=== PATIENT | female | born 1950 | race Caucasian/White ===

== ENCOUNTER → 2019-02-17 | Outpatient (CLI) | payer OTHER ==
[~2019-02-17] MED LIST: ASPI81EC PO; CALCIT950 PO; CHOL10002 PO; ESTRTP PV; Hair, Skin & N1 EACH; MELA3 PO; PROBIOTIC PEAR1 EACH; TURMERIC500 MG; UBID100 PO; VIT1CAPS12 PO
[2019-02-17 14:22] LABS: Stool Occult Bld Immuno 1 Negative (NEGATIVE)
== END ==
LOC: LAB 08:00 → LAB SHORT 08:00 → LAB FUT 02-16 14:45
PROVIDERS: Nurse Practitioner Family
DX: R19.7 Diarrhea, unspecified (principal); R10.9 Unspecified abdominal pain; K92.1 Melena
CPT/HCPCS: 82274

== ENCOUNTER 2020-02-14 06:02 | Day surgery (SDC) | payer OTHER ==
[~2020-02-14] VITALS: Ht 165.1 cm; Wt 51.0 kg
== END 2020-02-14 09:40 | disposition home or self-care (01) ==
LOC: ORSCMMR 06:02 → ORD 07:30 → ORSCMMR 09:40
PROVIDERS: Surgery
PROC: B5131ZA Fluoroscopy of Right Jugular Veins using Low Osmolar Contrast, Guidance (ICD-10-PCS; principal; 2020-02-14 07:30)
PROC: 05HM33Z Insertion of Infusion Device into Right Internal Jugular Vein, Percutaneous Approach (ICD-10-PCS; principal; 2020-02-14 07:30)
DX: C25.4 Malignant neoplasm of endocrine pancreas (principal); K21.9 Gastro-esophageal reflux disease without esophagitis; Z79.899 Other long term (current) drug therapy; Z85.3 Personal history of malignant neoplasm of breast; J47.9 Bronchiectasis, uncomplicated
CPT/HCPCS: 77001; C1788; J0690; J1100; J1642; J2250; J2370; J2405; J2704; J3010; J7120

== ENCOUNTER → 2020-02-28 | Outpatient (CLI) | payer OTHER ==
[2020-02-28 13:05] LABS: Hematocrit 24.8 % (33.0-51.0); Hemoglobin 8.1 g/dL (11.5-16.0); Mean Corpuscular HGB 21.4 pg (26.0-34.0); Mean Corpuscular HGB Conc 32.7 g/dL (31.5-36.5); Mean Corpuscular Volume 65 fL (80-100); Platelet Count 111 K/mm3 (150-400); RDW Standard Deviation 34.8 fL (35.1-46.3); Red Blood Cell Count 3.79 M/mm3 (3.80-5.20); White Blood Cell Count 3.87 K/mm3 (4.00-11.30)
[2020-02-28 13:14] LABS: Alanine Aminotransfer (ALT/SGP 136 U/L (12-78); Albumin, Blood 2.9 g/dL (3.4-5.0); Albumin/Globulin Ratio 1.4 (0.8-1.8); Alk Phos 132 U/L (50-136); Anion Gap 6 mmol/L (6-16); Aspartate Aminotrans (AST/SGOT 78 U/L (12-37); Bilirubin, Total 0.7 mg/dL (0.1-1.0); Blood Urea Nitrogen 10 mg/dL (8-24); Bun/Creatinine Ratio 20.5 (12.0-20.0); CO2, Blood 27 mmol/L (21-32); Calcium, Blood 8.1 mg/dL (8.5-10.1); Chloride, Blood 99 mmol/L (98-108); Creatinine, Blood 0.49 mg/dL (0.40-1.00); Globulin, Blood 2.1 g/dL (2.2-4.0); Glomerular Filtration Rate >60 (60-); Glucose, Blood 101 mg/dL (70-99); Sodium, Blood 132 mmol/L (136-145)
[2020-02-28 13:28] LABS: Mean Platelet Volume 9.6 fL (9.1-12.4)
[2020-02-28 14:14] LABS: BASOPHILS PERCENT MAN 0 % (0-2); EOSINOPHILS ABSOLUTE MAN 0.23 K/mm3 (0.00-0.68); EOSINOPHILS PERCENT MAN 6 % (0-6); LYMPHOCYTES % ATYPICAL MANUAL 1 % (0-0); LYMPHOCYTES ABSOLUTE MAN 2.05 K/mm3 (0.84-5.20); LYMPHOCYTES PERCENT MAN 52 % (21-46); MONOCYTES PERCENT MAN 0 % (4-13); NEUTROPHILS ABSOLUTE MAN 1.58 K/mm3 (1.96-9.15); SEG NEUTROPHILS PERCENT MAN 41 % (41-73); TOTAL CELLS COUNTED 100
[2020-02-28 14:46] LABS: Performing Lab SYMBIODYX; Test Name FLOW
[2020-02-28 15:54] LABS: Percent Saturation 99.3 % (15.0-50.0)
== END | disposition home or self-care (01) ==
LOC: LAB SHORT 12:47 → LAB 12:47
PROVIDERS: Internal Medicine Hematology & Oncology
DX: C25.9 Malignant neoplasm of pancreas, unspecified (principal)
CPT/HCPCS: 80053; 82728; 83540; 83550; 85025

== ENCOUNTER 2020-03-09 00:07 | Day surgery (SDC) | payer OTHER ==
[2020-03-07 12:28] LABS: BASOPHILS PERCENT AUTO 0 % (0-2); EOSINOPHILS ABSOLUTE AUTO 0.12 K/mm3 (0.00-0.68); EOSINOPHILS PERCENT AUTO 5 % (0-6); Hematocrit 23.9 % (33.0-51.0); Hemoglobin 7.8 g/dL (11.5-16.0); IMMATURE GRAN PERCENT AUTO 0 % (0-1); LYMPHOCYTES ABSOLUTE AUTO 1.66 K/mm3 (0.84-5.20); LYMPHOCYTES PERCENT AUTO 74 % (21-46); MONOCYTES ABSOLUTE AUTO 0.27 K/mm3 (0.16-1.47); MONOCYTES PERCENT AUTO 12 % (4-13); Mean Corpuscular HGB 21.8 pg (26.0-34.0); Mean Corpuscular HGB Conc 32.6 g/dL (31.5-36.5); Mean Corpuscular Volume 67 fL (80-100); Mean Platelet Volume 9.3 fL (9.1-12.4); NEUTROPHILS ABSOLUTE AUTO 0.18 K/mm3 (1.96-9.15); NEUTROPHILS PERCENT AUTO 8 % (41-73); Platelet Count 236 K/mm3 (150-400); RDW Coefficient Variation 17.6 % (11.7-14.2); RDW Standard Deviation 35.8 fL (35.1-46.3); Red Blood Cell Count 3.58 M/mm3 (3.80-5.20); White Blood Cell Count 2.23 K/mm3 (4.00-11.30)
[2020-03-07 12:37] LABS: Alanine Aminotransfer (ALT/SGP 101 U/L (12-78); Albumin, Blood 2.9 g/dL (3.4-5.0); Albumin/Globulin Ratio 1.3 (0.8-1.8); Alk Phos 126 U/L (50-136); Anion Gap 9 mmol/L (6-16); Aspartate Aminotrans (AST/SGOT 33 U/L (12-37); Bilirubin, Total 0.9 mg/dL (0.1-1.0); Blood Urea Nitrogen 4 mg/dL (8-24); Bun/Creatinine Ratio 7.2 (12.0-20.0); CO2, Blood 26 mmol/L (21-32); Calcium, Blood 8.1 mg/dL (8.5-10.1); Chloride, Blood 103 mmol/L (98-108); Creatinine, Blood 0.56 mg/dL (0.40-1.00); Globulin, Blood 2.3 g/dL (2.2-4.0); Glomerular Filtration Rate >60 (60-); Glucose, Blood 93 mg/dL (70-99); Potassium, Blood 3.1 mmol/L (3.5-5.5); Sodium, Blood 138 mmol/L (136-145); Total Protein, Blood 5.2 g/dL (6.4-8.2)
== END 2020-03-09 16:25 | disposition home or self-care (01) ==
LOC: LAB 00:07 → ATC 00:07 → LAB FUT 02-28 11:30 → EDSTATUS 02-28 11:30
PROVIDERS: Internal Medicine Hematology & Oncology
DX: D64.81 Anemia due to antineoplastic chemotherapy (principal); C25.4 Malignant neoplasm of endocrine pancreas; Z79.899 Other long term (current) drug therapy; Z88.0 Allergy status to penicillin
CPT/HCPCS: 36415; 36430; 80053; 85025; 86850; 86900; 86901; 86923; J1642; J7050; P9016

== ENCOUNTER → 2020-11-24 | Outpatient (CLI) | payer OTHER ==
[~2020-11-24] MED LIST changes: +CREON DR 24,001 EACH PO; +LOMOTIL 2.5-0.1 EACH PO; +Roxicodone5 MG PO; +ZINC15 PO
== END | disposition home or self-care (01) ==
LOC: LAB SHORT 08:05 → LAB 08:05
DX: N39.0 Urinary tract infection, site not specified (principal)
CPT/HCPCS: 87086

== ENCOUNTER → 2020-12-11 | Outpatient (CLI) | payer OTHER | END | disposition home or self-care (01) | LOC: LAB 09:30 → LAB SHORT 09:30 | DX: R31.9 Hematuria, unspecified (principal) | CPT/HCPCS: 87086 ==

== ENCOUNTER → 2020-12-25 | Outpatient (CLI) | payer OTHER | END | disposition home or self-care (01) | LOC: LAB 15:27 → LAB SHORT 15:27 | DX: R31.9 Hematuria, unspecified (principal) | CPT/HCPCS: 87086 ==

== ENCOUNTER → 2021-04-16 | Outpatient (CLI) | payer OTHER | END | disposition home or self-care (01) | LOC: LAB SHORT 09:48 → LAB 09:48 | DX: L08.9 Local infection of the skin and subcutaneous tissue, unspecified (principal) | CPT/HCPCS: 87070; 87205 ==

== ENCOUNTER 2021-05-15 06:44 | Emergency (ER) | payer OTHER ==
[~2021-05-15] VITALS: Ht 165.1 cm; Wt 48.5 kg
[~2021-05-15 06:44] MED LIST changes: -CREON DR 24,001 EACH PO; -LOMOTIL 2.5-0.1 EACH PO; -ZINC15 PO
[2021-05-15] MEDS ORDERED: LOMOTIL 2.5-0.1 EACH PO (07:41)
[2021-05-15] MEDS ORDERED: CREON DR 24,001 EACH PO (07:41)
[2021-05-15] MEDS ORDERED: ZINC15 PO (07:42)
[2021-05-15 07:46] LABS: BASOPHILS ABSOLUTE AUTO 0.03 K/mm3 (0.00-0.23); BASOPHILS PERCENT AUTO 1 % (0-2); EOSINOPHILS ABSOLUTE AUTO 0.13 K/mm3 (0.00-0.68); EOSINOPHILS PERCENT AUTO 3 % (0-6); Hematocrit 33.5 % (33.0-51.0); Hemoglobin 10.5 g/dL (11.5-16.0); IMMATURE GRAN ABSOLUTE AUTO 0.01 K/mm3 (0.00-0.10); IMMATURE GRAN PERCENT AUTO 0 % (0-1); LYMPHOCYTES ABSOLUTE AUTO 0.94 K/mm3 (0.84-5.20); LYMPHOCYTES PERCENT AUTO 19 % (21-46); MONOCYTES ABSOLUTE AUTO 0.41 K/mm3 (0.16-1.47); MONOCYTES PERCENT AUTO 8 % (4-13); Mean Corpuscular HGB 21.6 pg (26.0-34.0); Mean Corpuscular HGB Conc 31.3 g/dL (31.5-36.5); Mean Corpuscular Volume 69 fL (80-100); NEUTROPHILS ABSOLUTE AUTO 3.37 K/mm3 (1.96-9.15); NEUTROPHILS PERCENT AUTO 69 % (41-73); Platelet Count 162 K/mm3 (150-400); RDW Coefficient Variation 15.1 % (11.7-14.2); RDW Standard Deviation 36.6 fL (35.1-46.3); Red Blood Cell Count 4.86 M/mm3 (3.80-5.20); White Blood Cell Count 4.89 K/mm3 (4.00-11.30)
[2021-05-15 08:06] LABS: Alanine Aminotransfer (ALT/SGP 89 U/L (12-78); Albumin, Blood 3.8 g/dL (3.4-5.0); Albumin/Globulin Ratio 1.4 (0.8-1.8); Alk Phos 102 U/L (50-136); Anion Gap 4 mmol/L (6-16); Aspartate Aminotrans (AST/SGOT 36 U/L (12-37); Bilirubin, Total 1.6 mg/dL (0.1-1.0); Blood Urea Nitrogen 25 mg/dL (8-24); Bun/Creatinine Ratio 38.6 (12.0-20.0); CO2, Blood 29 mmol/L (21-32); Calcium, Blood 8.6 mg/dL (8.5-10.1); Chloride, Blood 108 mmol/L (98-108); Creatinine, Blood 0.65 mg/dL (0.40-1.00); Globulin, Blood 2.7 g/dL (2.2-4.0); Glomerular Filtration Rate >60 (60-); Glucose, Blood 103 mg/dL (70-99); Sodium, Blood 141 mmol/L (136-145); Total Protein, Blood 6.5 g/dL (6.4-8.2)
== END 2021-05-15 09:36 | disposition home or self-care (01) ==
LOC: ER 06:44
PROVIDERS: Emergency Medicine
DX: R10.32 Left lower quadrant pain (principal); Z88.0 Allergy status to penicillin; Z91.041 Radiographic dye allergy status; Z88.8 Allergy status to other drugs, medicaments and biological substances; Z79.82 Long term (current) use of aspirin; Z79.899 Other long term (current) drug therapy
CPT/HCPCS: 36415; 74176; 80053; 83690; 85025; 99284-25; J2405

== ENCOUNTER → 2021-08-15 | Outpatient (CLI) | payer OTHER ==
[~2021-08-15] MED LIST changes: +CREON DR 24,001 EACH PO; +LOMOTIL 2.5-0.1 EACH PO; +ZINC15 PO
[2021-08-23 12:09] LABS: CA OXALATE DIHYDRATE 90 % (.); CALCIUM OXALATE MONOHYDRATE 10 % (.); COLOR Tan (.); WEIGHT <1 mg (.)
== END | disposition home or self-care (01) ==
LOC: LAB SHORT 18:30
PROVIDERS: Family Medicine
DX: N20.0 Calculus of kidney (principal)
CPT/HCPCS: 82365

== ENCOUNTER → 2022-01-10 | Outpatient (CLI) | payer OTHER ==
[2022-01-10 15:23] LABS: Source, Urine Voided
[2022-01-10 16:06] LABS: Appearance, Urine Clear (Clear); Bilirubin, Urine Neg (Neg); Blood, Urine 5+ (Neg); Color, Urine Yellow (P-Yellow); Glucose Qualitative, Urine Neg (Neg); Ketones, Urine Neg (Neg); Leukocyte Esterase, Urine Neg (Neg); Nitrite, Urine Neg (Neg); Protein, Urine 1+ (Neg); Urobilinogen, Urine NORM (Normal); pH, Urine 6.5 (5.0-8.0)
[2022-01-10 17:38] LABS: Bacteria Few /hpf; Calcium Oxalate Crystals Few /hpf; Red Blood Cells, Urine 0-2 /hpf (0-2); Squamous Epithelial Cells Rare /hpf (Few); White Blood Cells, Urine 0-2 /hpf (0-5)
== END | disposition home or self-care (01) ==
LOC: LAB 09:23 → LAB SHORT 09:23
PROVIDERS: Nurse Practitioner Family
DX: N39.0 Urinary tract infection, site not specified (principal); R30.0 Dysuria; R15.0 Incomplete defecation; R31.9 Hematuria, unspecified
CPT/HCPCS: 81001; 87086

== ENCOUNTER 2022-05-04 21:56 | Inpatient (IN) | payer OTHER ==
[~2022-05-04] VITALS: Ht 165.1 cm; Wt 51.5 kg
[2022-05-04 22:26] LABS: BASOPHILS ABSOLUTE AUTO 0.02 K/mm3 (0.00-0.23); BASOPHILS PERCENT AUTO 0 % (0-2); EOSINOPHILS ABSOLUTE AUTO 0.04 K/mm3 (0.00-0.68); EOSINOPHILS PERCENT AUTO 0 % (0-6); Hematocrit 31.7 % (33.0-51.0); Hemoglobin 10.2 g/dL (11.5-16.0); IMMATURE GRAN ABSOLUTE AUTO 0.02 K/mm3 (0.00-0.10); IMMATURE GRAN PERCENT AUTO 0 % (0-1); LYMPHOCYTES PERCENT AUTO 7 % (21-46); MONOCYTES ABSOLUTE AUTO 0.35 K/mm3 (0.16-1.47); MONOCYTES PERCENT AUTO 4 % (4-13); Mean Corpuscular HGB 21.2 pg (26.0-34.0); Mean Corpuscular HGB Conc 32.2 g/dL (31.5-36.5); Mean Corpuscular Volume 66 fL (80-100); NEUTROPHILS PERCENT AUTO 89 % (41-73); Platelet Count 116 K/mm3 (150-400); RDW Coefficient Variation 14.6 % (11.7-14.2); RDW Standard Deviation 34.1 fL (35.1-46.3); Red Blood Cell Count 4.81 M/mm3 (3.80-5.20); White Blood Cell Count 9.23 K/mm3 (4.00-11.30)
[2022-05-04 22:44] LABS: Albumin, Blood 3.1 g/dL (3.4-5.0); Albumin/Globulin Ratio 0.9 (0.8-1.8); Bilirubin, Total 2.6 mg/dL (0.1-1.0); Bun/Creatinine Ratio 23.7 (12.0-20.0); Calcium, Blood 8.9 mg/dL (8.5-10.1); Creatinine, Blood 0.68 mg/dL (0.40-1.00); Globulin, Blood 3.4 g/dL (2.2-4.0); Potassium, Blood 3.8 mmol/L (3.5-5.5); Total Protein, Blood 6.5 g/dL (6.4-8.2)
[2022-05-05 02:14] LABS: Influenza A, PCR NEGATIVE (NEGATIVE); Influenza B, PCR NEGATIVE (NEGATIVE); Resp Syncytial Virus, PCR NEGATIVE (NEGATIVE); SARS-Cov-2 (COVID-19) PCR, MMC NEGATIVE (NEGATIVE)
[2022-05-05 03:52] LABS: Source, Urine Clean Catch
[2022-05-05 03:55] LABS: Bilirubin, Urine Neg (Neg); Blood, Urine 5+ (Neg); Glucose Qualitative, Urine Neg (Neg); Ketones, Urine 2+ (Neg); Leukocyte Esterase, Urine 3+ (Neg); Nitrite, Urine Pos (Neg); Protein, Urine 3+ (Neg); Urobilinogen, Urine NORM (Normal)
[2022-05-05 04:02] LABS: Appearance, Urine Cloudy (Clear); Color, Urine Yellow (P-Yellow)
[2022-05-05 04:03] LABS: Amorphous Light (0-Heavy); Bacteria Many /hpf; Squamous Epithelial Cells Few /hpf (Few); White Blood Cells, Urine 50-100 /hpf (0-5)
[2022-05-05 05:28] LABS: Source, Urine Foley catheter
[2022-05-05 05:34] LABS: Bilirubin, Urine Neg (Neg); Blood, Urine 5+ (Neg); Glucose Qualitative, Urine Neg (Neg); Ketones, Urine 2+ (Neg); Leukocyte Esterase, Urine 3+ (Neg); Nitrite, Urine Pos (Neg); Protein, Urine 2+ (Neg); Urobilinogen, Urine NORM (Normal)
[2022-05-05 05:39] LABS: Appearance, Urine Cloudy (Clear); Color, Urine Yellow (P-Yellow)
[2022-05-05 05:50] LABS: Amorphous Light (0-Heavy); Bacteria Many /hpf; Squamous Epithelial Cells Few /hpf (Few); White Blood Cells, Urine TNTC /hpf (0-5)
[2022-05-05] MEDS ORDERED: MAGCIT300 PO (10:33)
[2022-05-05] MEDS ORDERED: OXYB5 PO (10:34)
[2022-05-05] MEDS ORDERED: TAMS.4ER (10:34)
[2022-05-05] MEDS ORDERED: Estrace Vagin42.5 GM PV (10:34)
[2022-05-05] MEDS ORDERED: Pyridium100 MG PO (10:35)
[2022-05-05] MEDS ORDERED: Percocet 5-3251 EACH PO (16:15)
[2022-05-05] MEDS ORDERED: CREON DR 12,001 EACH PO (17:52)
--- NOTE | 2022-05-05 18:12 | NUR ---
SHIFT SUMMARY PT ARRIVED FROM ED TO UNIT. NS INFUSING @ 125ML/HR. LACY IN PLACE, DRAINGING TO GRAVITY. PT ALERT AND ORIENTED, FOLLOWS COMMANDS. PT INDEPENDENT, AMBULATES TO BATHROOM. CURRENTLY ON CLEARS, TOLERATING. IV ABX SCHEDULED. CALL LIGHT WITHIN REACH. WILL CONTINUE TO MONITOR.
[2022-05-06 05:05] LABS: BASOPHILS ABSOLUTE AUTO 0.02 K/mm3 (0.00-0.23); BASOPHILS PERCENT AUTO 0 % (0-2); EOSINOPHILS PERCENT AUTO 1 % (0-6); Hematocrit 24.5 % (33.0-51.0); Hemoglobin 7.9 g/dL (11.5-16.0); IMMATURE GRAN ABSOLUTE AUTO 0.04 K/mm3 (0.00-0.10); IMMATURE GRAN PERCENT AUTO 0 % (0-1); LYMPHOCYTES ABSOLUTE AUTO 1.17 K/mm3 (0.84-5.20); LYMPHOCYTES PERCENT AUTO 13 % (21-46); MONOCYTES ABSOLUTE AUTO 0.83 K/mm3 (0.16-1.47); MONOCYTES PERCENT AUTO 9 % (4-13); Mean Corpuscular HGB 21.2 pg (26.0-34.0); Mean Corpuscular HGB Conc 32.2 g/dL (31.5-36.5); Mean Corpuscular Volume 66 fL (80-100); Mean Platelet Volume 10.6 fL (9.1-12.4); NEUTROPHILS ABSOLUTE AUTO 7.13 K/mm3 (1.96-9.15); NEUTROPHILS PERCENT AUTO 77 % (41-73); Platelet Count 101 K/mm3 (150-400); RDW Coefficient Variation 14.6 % (11.7-14.2); RDW Standard Deviation 34.5 fL (35.1-46.3); Red Blood Cell Count 3.72 M/mm3 (3.80-5.20); White Blood Cell Count 9.29 K/mm3 (4.00-11.30)
[2022-05-06 05:27] LABS: Albumin, Blood 2.3 g/dL (3.4-5.0); Albumin/Globulin Ratio 0.8 (0.8-1.8); Bilirubin, Total 1.2 mg/dL (0.1-1.0); Bun/Creatinine Ratio 23.8 (12.0-20.0); Creatinine, Blood 0.46 mg/dL (0.40-1.00); Globulin, Blood 2.8 g/dL (2.2-4.0); Potassium, Blood 2.9 mmol/L (3.5-5.5); Total Protein, Blood 5.1 g/dL (6.4-8.2)
[2022-05-06 10:31] LABS: Hematocrit 27.7 % (33.0-51.0); Hemoglobin 8.8 g/dL (11.5-16.0)
[2022-05-06 16:04] LABS: Hematocrit 25.3 % (33.0-51.0); Hemoglobin 8.1 g/dL (11.5-16.0)
[2022-05-06 21:32] LABS: Hematocrit 24.4 % (33.0-51.0); Hemoglobin 7.9 g/dL (11.5-16.0)
--- NOTE | 2022-05-07 04:24 | NUR ---
SHIFT SUMMARY: PT IS A/OX4. LACY IS PATENT. PER TELE MONITOR: SR/82. NO BM THIS SHIFT. THE 220 VANCO WAS TEMPORARILY HELD D/T PT REPORTING BURNING SENSATION. A NEW IV WAS STARTED W/ THE SAME SENSATION. WAS NOTIFIED. RN REDUCED ABX RATE TO 75ML/HR AND Y SITED IT INTO THE MAINTENANCE NS @ 100ML/HR. NO PAIN REPORTED AND ABX FINISHED. PT DID HAVE SOME QUESTIONS ABOUT RESUMING SOME OF HER HOME MEDS (PANCREATIC ENZYMES) NO PAIN REPORTED. NO OTHER CHANGES TO REPORT.
[2022-05-07 08:17] LABS: Albumin, Blood 2.3 g/dL (3.4-5.0); Anion Gap 5 mmol/L (6-16); Blood Urea Nitrogen 5 mg/dL (8-24); Bun/Creatinine Ratio 10.6 (12.0-20.0); CO2, Blood 31 mmol/L (21-32); Calcium, Blood 8.3 mg/dL (8.5-10.1); Chloride, Blood 103 mmol/L (98-108); Creatinine, Blood 0.47 mg/dL (0.40-1.00); Glomerular Filtration Rate 103 (60-); Glucose, Blood 92 mg/dL (70-99); Phosphorus, Blood 3.1 mg/dL (2.5-4.9); Potassium, Blood 2.8 mmol/L (3.5-5.5); Sodium, Blood 139 mmol/L (136-145)
[2022-05-07 17:10] LABS: Hematocrit 25.3 % (33.0-51.0); Hemoglobin 8.2 g/dL (11.5-16.0)
[2022-05-07 21:42] LABS: Vancomycin, Trough 6.8 ug/mL (5.0-10.0)
[2022-05-08 01:20] LABS: Hematocrit 24.7 % (33.0-51.0); Hemoglobin 7.9 g/dL (11.5-16.0)
--- NOTE | 2022-05-08 03:50 | NUR ---
SHIFT SUMMARY: PT IS A/OX4. SHE IS VERY PLEASANT AND CALM THROUGHOUT ALL CARE. SHE DID TOLERATE THE IV ABX AND DID NOT HAVE ANY COMPLAINTS OF BURNING OR PAIN. SHE DID NOT HAVE ANY C/O PAIN EITHER. SHE IS INDEPENDENT IN THE ROOM AND USES HER CALL LIGHT FOR ALL NEEDS.
[2022-05-08 09:03] LABS: BASOPHILS ABSOLUTE AUTO 0.03 K/mm3 (0.00-0.23); BASOPHILS PERCENT AUTO 1 % (0-2); EOSINOPHILS ABSOLUTE AUTO 0.24 K/mm3 (0.00-0.68); EOSINOPHILS PERCENT AUTO 4 % (0-6); Hematocrit 27.8 % (33.0-51.0); Hemoglobin 8.8 g/dL (11.5-16.0); IMMATURE GRAN ABSOLUTE AUTO 0.02 K/mm3 (0.00-0.10); IMMATURE GRAN PERCENT AUTO 0 % (0-1); LYMPHOCYTES ABSOLUTE AUTO 1.45 K/mm3 (0.84-5.20); LYMPHOCYTES PERCENT AUTO 23 % (21-46); MONOCYTES ABSOLUTE AUTO 0.55 K/mm3 (0.16-1.47); MONOCYTES PERCENT AUTO 9 % (4-13); Mean Corpuscular HGB Conc 31.7 g/dL (31.5-36.5); Mean Corpuscular Volume 66 fL (80-100); Mean Platelet Volume 9.8 fL (9.1-12.4); NEUTROPHILS ABSOLUTE AUTO 4.04 K/mm3 (1.96-9.15); NEUTROPHILS PERCENT AUTO 64 % (41-73); Platelet Count 151 K/mm3 (150-400); RDW Coefficient Variation 14.1 % (11.7-14.2); RDW Standard Deviation 33.5 fL (35.1-46.3); Red Blood Cell Count 4.19 M/mm3 (3.80-5.20); White Blood Cell Count 6.33 K/mm3 (4.00-11.30)
[2022-05-08 09:23] LABS: Albumin, Blood 2.5 g/dL (3.4-5.0); Anion Gap 6 mmol/L (6-16); Blood Urea Nitrogen 11 mg/dL (8-24); Bun/Creatinine Ratio 22.2 (12.0-20.0); CO2, Blood 29 mmol/L (21-32); Calcium, Blood 8.6 mg/dL (8.5-10.1); Chloride, Blood 104 mmol/L (98-108); Glomerular Filtration Rate 101 (60-); Glucose, Blood 111 mg/dL (70-99); Phosphorus, Blood 2.9 mg/dL (2.5-4.9); Potassium, Blood 3.4 mmol/L (3.5-5.5); Sodium, Blood 139 mmol/L (136-145)
[2022-05-08] MEDS ORDERED: DOCUZEN 8.6-501 EACH PO (12:50)
[2022-05-08] MEDS ORDERED: POTCHL20ER PO (12:51)
[2022-05-08] MEDS ORDERED: CEPH500 PO (12:51)
== END 2022-05-08 16:08 | disposition home health service (06) | DRG 698 ==
LOC: ER 21:56 → ERHOLD 05-05 06:08 → MEDS 05-05 12:39
PROVIDERS: Internal Medicine; Student in an Organized Health Care Education/Training Program; ADMIT Internal Medicine
DX: T83.593A Infection and inflammatory reaction due to other urinary stents, initial encounter (principal); A41.2 Sepsis due to unspecified staphylococcus; D62 Acute posthemorrhagic anemia; N10 Acute pyelonephritis; E87.6 Hypokalemia; Z88.0 Allergy status to penicillin; Z91.040 Latex allergy status; Z88.8 Allergy status to other drugs, medicaments and biological substances; Z87.442 Personal history of urinary calculi; Z98.890 Other specified postprocedural states; Z79.899 Other long term (current) drug therapy; R33.9 Retention of urine, unspecified
CPT/HCPCS: 0241U; 36415; 36416; 51702; 51798; 74176; 80053; 80069; 80202; 81001; 83605; 85014; 85018; 85025; 87040; 87077; 87086; 87186; 93306; 96372; 96374; 99285-25; A9270; J0696; J1650; J3370; J3480; J7030; J7040; J7060

== ENCOUNTER 2022-05-29 12:16 | Emergency (ER) | payer OTHER ==
[~2022-05-29] VITALS: Ht 165.1 cm; Wt 46.7 kg
[~2022-05-29 12:16] MED LIST changes: +CEPH500 PO; +CREON DR 12,001 EACH PO; +DOCUZEN 8.6-501 EACH PO; +Estrace Vagin42.5 GM PV; +MAGCIT300 PO; +OXYB5 PO; +POTCHL20ER PO; +Percocet 5-3251 EACH PO; +Pyridium100 MG PO; +TAMS.4ER
[2022-05-29 12:40] LABS: BASOPHILS ABSOLUTE AUTO 0.05 K/mm3 (0.00-0.23); BASOPHILS PERCENT AUTO 1 % (0-2); EOSINOPHILS ABSOLUTE AUTO 0.09 K/mm3 (0.00-0.68); EOSINOPHILS PERCENT AUTO 2 % (0-6); Hematocrit 31.9 % (33.0-51.0); Hemoglobin 10.5 g/dL (11.5-16.0); IMMATURE GRAN ABSOLUTE AUTO 0.01 K/mm3 (0.00-0.10); IMMATURE GRAN PERCENT AUTO 0 % (0-1); LYMPHOCYTES ABSOLUTE AUTO 1.07 K/mm3 (0.84-5.20); LYMPHOCYTES PERCENT AUTO 23 % (21-46); MONOCYTES ABSOLUTE AUTO 0.36 K/mm3 (0.16-1.47); MONOCYTES PERCENT AUTO 8 % (4-13); Mean Corpuscular HGB 21.6 pg (26.0-34.0); Mean Corpuscular HGB Conc 32.9 g/dL (31.5-36.5); Mean Corpuscular Volume 66 fL (80-100); Mean Platelet Volume 10.8 fL (9.1-12.4); NEUTROPHILS ABSOLUTE AUTO 3.16 K/mm3 (1.96-9.15); NEUTROPHILS PERCENT AUTO 67 % (41-73); Platelet Count 203 K/mm3 (150-400); RDW Coefficient Variation 19.7 % (11.7-14.2); Red Blood Cell Count 4.86 M/mm3 (3.80-5.20); White Blood Cell Count 4.74 K/mm3 (4.00-11.30)
[2022-05-29 13:14] LABS: Albumin, Blood 3.6 g/dL (3.4-5.0); Albumin/Globulin Ratio 0.9 (0.8-1.8); Bun/Creatinine Ratio 30.4 (12.0-20.0); Calcium, Blood 9.7 mg/dL (8.5-10.1); Creatinine, Blood 0.46 mg/dL (0.40-1.00); Potassium, Blood 4.1 mmol/L (3.5-5.5); Total Protein, Blood 7.6 g/dL (6.4-8.2)
== END 2022-05-29 18:35 | disposition home or self-care (01) ==
LOC: ER 12:16
PROVIDERS: Physician Assistant
DX: B17.9 Acute viral hepatitis, unspecified (principal); Z88.0 Allergy status to penicillin; Z88.1 Allergy status to other antibiotic agents; Z91.041 Radiographic dye allergy status; Z88.8 Allergy status to other drugs, medicaments and biological substances; Z79.899 Other long term (current) drug therapy
CPT/HCPCS: 36415; 80048; 80076; 83690; 85025

== ENCOUNTER 2022-08-19 04:47 | Emergency (ER) | payer OTHER ==
[~2022-08-19] VITALS: Ht 165.1 cm; Wt 45.8 kg
[~2022-08-19 04:47] MED LIST changes: -CIPR500 PO; -METR500 PO
[2022-08-19 05:58] LABS: BASOPHILS ABSOLUTE AUTO 0.04 K/mm3 (0.00-0.23); BASOPHILS PERCENT AUTO 1 % (0-2); EOSINOPHILS ABSOLUTE AUTO 0.26 K/mm3 (0.00-0.68); EOSINOPHILS PERCENT AUTO 5 % (0-6); Hematocrit 27.2 % (33.0-51.0); Hemoglobin 8.6 g/dL (11.5-16.0); IMMATURE GRAN ABSOLUTE AUTO 0.01 K/mm3 (0.00-0.10); IMMATURE GRAN PERCENT AUTO 0 % (0-1); LYMPHOCYTES ABSOLUTE AUTO 1.72 K/mm3 (0.84-5.20); LYMPHOCYTES PERCENT AUTO 30 % (21-46); MONOCYTES ABSOLUTE AUTO 0.53 K/mm3 (0.16-1.47); MONOCYTES PERCENT AUTO 9 % (4-13); Mean Corpuscular HGB 18.6 pg (26.0-34.0); Mean Corpuscular HGB Conc 31.6 g/dL (31.5-36.5); Mean Corpuscular Volume 59 fL (80-100); NEUTROPHILS PERCENT AUTO 56 % (41-73); Platelet Count 203 K/mm3 (150-400); RDW Coefficient Variation 16.3 % (11.7-14.2); Red Blood Cell Count 4.63 M/mm3 (3.80-5.20); White Blood Cell Count 5.76 K/mm3 (4.00-11.30)
[2022-08-19 06:02] LABS: Mean Platelet Volume 10.3 fL (9.1-12.4)
[2022-08-19 06:12] LABS: Albumin, Blood 2.9 g/dL (3.4-5.0); Albumin/Globulin Ratio 0.8 (0.8-1.8); Bilirubin, Direct 0.9 mg/dL (0.0-0.3); Bilirubin, Indirect 0.5 mg/dL (0.1-0.7); Bilirubin, Total 1.4 mg/dL (0.1-1.0); Bun/Creatinine Ratio 43.7 (12.0-20.0); Calcium, Blood 8.9 mg/dL (8.5-10.1); Creatinine, Blood 0.41 mg/dL (0.40-1.00); Globulin, Blood 3.8 g/dL (2.2-4.0); Magnesium, Blood 1.8 mg/dL (1.6-2.4); Potassium, Blood 3.5 mmol/L (3.5-5.5); Total Protein, Blood 6.7 g/dL (6.4-8.2)
[2022-08-19 07:08] LABS: Influenza A, PCR NEGATIVE (NEGATIVE); Influenza B, PCR NEGATIVE (NEGATIVE); Resp Syncytial Virus, PCR NEGATIVE (NEGATIVE); SARS-Cov-2 (COVID-19) PCR, MMC NEGATIVE (NEGATIVE)
[2022-08-19] MEDS ORDERED: METR500 PO (08:00)
[2022-08-19] MEDS ORDERED: CIPR500 PO (08:00)
== END 2022-08-19 08:19 | disposition home or self-care (01) ==
LOC: ER 04:47
PROVIDERS: Student in an Organized Health Care Education/Training Program
DX: K83.09 Other cholangitis (principal); Z20.822 Contact with and (suspected) exposure to COVID-19; Z79.899 Other long term (current) drug therapy
CPT/HCPCS: 0241U; 36415; 80048; 80076; 83605; 83690; 83735; 85025; 93005; 93010; 99285-25; A9270

== ENCOUNTER → 2022-08-19 | Outpatient (CLI) | payer OTHER ==
[~2022-08-19] MED LIST changes: +CIPR500 PO; +METR500 PO
[2022-08-20 14:13] LABS: C DIFFICILE DNA NEGATIVE (Negative)
== END | disposition home or self-care (01) ==
LOC: LAB SHORT 13:30 → LAB 13:30
PROVIDERS: Family Medicine
DX: A04.71 Enterocolitis due to Clostridium difficile, recurrent (principal)
CPT/HCPCS: 87493

== ENCOUNTER 2022-10-28 05:50 | Inpatient (IN) | payer OTHER ==
[~2022-10-28] VITALS: Ht 157.5 cm; Wt 39.1 kg
[~2022-10-28 05:50] MED LIST changes: +CIPR500 PO; +METR500 PO
[2022-10-28 06:59] LABS: BASOPHILS ABSOLUTE AUTO 0.07 K/mm3 (0.00-0.23); BASOPHILS PERCENT AUTO 0 % (0-2); EOSINOPHILS ABSOLUTE AUTO 0.06 K/mm3 (0.00-0.68); EOSINOPHILS PERCENT AUTO 0 % (0-6); Hematocrit 21.7 % (33.0-51.0); Hemoglobin 6.8 g/dL (11.5-16.0); IMMATURE GRAN ABSOLUTE AUTO 0.33 K/mm3 (0.00-0.10); IMMATURE GRAN PERCENT AUTO 1 % (0-1); LYMPHOCYTES ABSOLUTE AUTO 1.67 K/mm3 (0.84-5.20); LYMPHOCYTES PERCENT AUTO 5 % (21-46); MONOCYTES ABSOLUTE AUTO 1.89 K/mm3 (0.16-1.47); MONOCYTES PERCENT AUTO 6 % (4-13); Mean Corpuscular HGB 17.8 pg (26.0-34.0); Mean Corpuscular HGB Conc 31.3 g/dL (31.5-36.5); Mean Corpuscular Volume 57 fL (80-100); Mean Platelet Volume 9.7 fL (9.1-12.4); NEUTROPHILS ABSOLUTE AUTO 29.23 K/mm3 (1.96-9.15); NEUTROPHILS PERCENT AUTO 88 % (41-73); Platelet Count 309 K/mm3 (150-400); RDW Standard Deviation 35.6 fL (35.1-46.3); Red Blood Cell Count 3.82 M/mm3 (3.80-5.20); White Blood Cell Count 33.25 K/mm3 (4.00-11.30)
[2022-10-28 07:12] LABS: Albumin, Blood 2.1 g/dL (3.4-5.0); Albumin/Globulin Ratio 0.5 (0.8-1.8); Bilirubin, Total 4.5 mg/dL (0.1-1.0); Bun/Creatinine Ratio 54.8 (12.0-20.0); Calcium, Blood 8.8 mg/dL (8.5-10.1); Creatinine, Blood 0.55 mg/dL (0.40-1.00); Globulin, Blood 4.2 g/dL (2.2-4.0); Potassium, Blood 4.2 mmol/L (3.5-5.5); Total Protein, Blood 6.3 g/dL (6.4-8.2)
[2022-10-28 11:27] LABS: International Normalized Ratio 1.8; Prothrombin Time Results 18.2 Sec (9.7-11.5)
[2022-10-28 14:43] LABS: Hematocrit 21.6 % (33.0-51.0); Hemoglobin 7.2 g/dL (11.5-16.0)
--- NOTE | 2022-10-28 16:50 | NUR ---
1500 PT ADMITTED TO ICU 16 PCU PATIENT, SHE IS ALERT AND ORIENTED. SHE HAS A MID ABDOMEN BILIARY DRAIN TO SMALL COLLECTION BAG DRAINING GREENISH BROWN. PT IS COMPLAINING OF PAIN 6-8/10 DEPENDING ON MOVEMENT. PT GIVEN PUDDING AND WATER PER HER REQUEST. SHE WAS ABLE TO GET A MENU TO FILL OUT FOR DINNER. HUS- BAND WAS WITH HER FOR THE FIRST 30-45 MINUTES. SHE STATES THAT THE LAST WEEK OR SO SHE HASN'T BEEN FEELING WELL, STATES THAT THIS IS SIMILAR TO HOW SHE FELT WHEN THE DRAIN SLIPPED BEFORE AND NEEDED TO BE REPLACED. REPORT IS GIVEN TO MINERVA TO RN AND PT IS TRANSFERRED TO PCU 18.
[2022-10-28 18:18] LABS: Hemoglobin 7.8 g/dL (11.5-16.0)
[2022-10-28 22:05] LABS: Hematocrit 21.4 % (33.0-51.0); Hemoglobin 7.1 g/dL (11.5-16.0)
--- NOTE | 2022-10-28 22:25 | NUR ---
Contacted resident regarding patient having bloody bowel movements. Order for repeat H&H in 2hr given. Contacted regarding drop in Hgb from 7.8 to 7.1 in 4 hours - order to repeat H&H in 4 hours.
[2022-10-29 02:01] LABS: BASOPHILS ABSOLUTE AUTO 0.01 K/mm3 (0.00-0.23); BASOPHILS PERCENT AUTO 0 % (0-2); EOSINOPHILS PERCENT AUTO 0 % (0-6); Hematocrit 21.1 % (33.0-51.0); Hemoglobin 6.8 g/dL (11.5-16.0); IMMATURE GRAN ABSOLUTE AUTO 0.14 K/mm3 (0.00-0.10); IMMATURE GRAN PERCENT AUTO 1 % (0-1); LYMPHOCYTES ABSOLUTE AUTO 0.98 K/mm3 (0.84-5.20); LYMPHOCYTES PERCENT AUTO 5 % (21-46); MONOCYTES ABSOLUTE AUTO 0.79 K/mm3 (0.16-1.47); MONOCYTES PERCENT AUTO 4 % (4-13); Mean Corpuscular HGB 19.6 pg (26.0-34.0); Mean Corpuscular HGB Conc 32.2 g/dL (31.5-36.5); Mean Corpuscular Volume 61 fL (80-100); Mean Platelet Volume 9.1 fL (9.1-12.4); NEUTROPHILS ABSOLUTE AUTO 16.54 K/mm3 (1.96-9.15); NEUTROPHILS PERCENT AUTO 90 % (41-73); Platelet Count 252 K/mm3 (150-400); RDW Coefficient Variation 22.5 % (11.7-14.2); RDW Standard Deviation 46.1 fL (35.1-46.3); Red Blood Cell Count 3.47 M/mm3 (3.80-5.20); White Blood Cell Count 18.46 K/mm3 (4.00-11.30)
[2022-10-29 02:15] LABS: International Normalized Ratio 2.31
[2022-10-29 02:20] LABS: Albumin, Blood 1.7 g/dL (3.4-5.0); Albumin/Globulin Ratio 0.5 (0.8-1.8); Bilirubin, Total 3.7 mg/dL (0.1-1.0); Bun/Creatinine Ratio 83.8 (12.0-20.0); Calcium, Blood 8.3 mg/dL (8.5-10.1); Creatinine, Blood 0.37 mg/dL (0.40-1.00); Globulin, Blood 3.6 g/dL (2.2-4.0); Magnesium, Blood 1.9 mg/dL (1.6-2.4); Total Protein, Blood 5.3 g/dL (6.4-8.2)
--- NOTE | 2022-10-29 04:43 | NUR ---
[facility] called for an update. Listed initiating doctor as Dr. Dunlap and the [facility] accepting physician as Dr. Dent regarding the biliary duct drain blockage, updated center on patients condition. Dr. Varner contacted regarding low repeat H&H, 1U PRBC ordered and request for GI consult, however we do not have GI on right now. Physician requested to have day team work on seeing if [facility] would be willing to accept for GI reasons.
--- NOTE | 2022-10-29 05:26 | NUR ---
A/O x4. Patient reports difficulty sleeping this shift. C/o minor abdominal pain. NSR on tele 70's, Denies CP/pressure. Mild abdominal distention, tender with palpation and hyperactive bowel tones x4. No N/V, but patient is having melena stools with mainly moderate amounts of blood clots. See previous notes. Jaundiced fragile skin with pale color. Bile duct drain in mid abdomen that is leaking bile around insertion site. Dressings saturated twice this shift with multiple gauze. VSS. Will report to kojo SMITH.
[2022-10-29 08:41] LABS: Hematocrit 25.5 % (33.0-51.0); Hemoglobin 8.4 g/dL (11.5-16.0)
[2022-10-29 10:00] LABS: Stool Occult Blood Guaiac 1 Pos (Neg)
[2022-10-29 13:55] LABS: Hematocrit 24.7 % (33.0-51.0); Hemoglobin 8.2 g/dL (11.5-16.0)
--- NOTE | 2022-10-29 14:25 | NUR ---
Spieritual care visit conducted. Pt is lying in bed and alert. Pt immediately tells me about her medical history, the events that led to her hospitalization and her current medical problems. She also explains about the surgery that nhung be performed here and the one that will need to be done at [facility]. Patient talks about her fears of the dying process and the unknown. During our conversation, pt's spouse Ed arrives and seamlessly enters the conversation. They then tell me about the many adventures they have been on together, the great family and friend support that they have (including a dtr that leaves with them for added support) and their long attachment to the [employer] tung. Pt shares about the daily practices centered around her tung that she engages in and how she is inspired and uplifted by the connection to God that she feels during these practices. We explore the goals and hobbies they are looking forwards to acheiving and participating in, in the furture. I normalized patient feeelings and struggles, reinforced helpful attitudes and practices and provided therapeutic listening, recitation of scripture, of scripture, spiritual guidance, anxiety containment and prayer. Pt responds wel and shows signs of increased peace and being encouraged in their tung. I will continue to remain available to patient and family.
--- NOTE | 2022-10-29 17:26 | NUR ---
TRANSFER SUMMARY PT WAS TRANSPORTED BY EMS TO [facility]. HANDOFF REPORT WAS GIVEN TO MEDICAL TRANSPORT PERSONNEL. THIS RN HAS MADE TWO ATTEMPTS TO GIVE REPORT TO RECEIVING FACILITY. ALL PERIPHERAL IV'S WERE SALINE LOCKED PRIOR TO TRANSPORT.
--- NOTE | 2022-10-29 17:39 | NUR ---
TRANSPORT UPDATE REPORT WAS CALLED TO LUIS WILLIAMSON AT [facility] AT 1730.
== END 2022-10-29 17:21 | disposition short-term general hospital (02) | DRG 872 ==
LOC: ER 05:50 → PCU 10:50 → ICUW 14:54 → PCU 16:39
PROVIDERS: Emergency Medicine; Family Medicine; Internal Medicine; Nurse Practitioner Acute Care; ADMIT Student in an Organized Health Care Education/Training Program
PROC: 3E03329 Introduction of Other Anti-infective into Peripheral Vein, Percutaneous Approach (ICD-10-PCS; principal; 2022-10-28)
PROC: 30233N1 Transfusion of Nonautologous Red Blood Cells into Peripheral Vein, Percutaneous Approach (ICD-10-PCS; 2022-10-28)
DX: A41.9 Sepsis, unspecified organism (principal); K83.09 Other cholangitis; C25.9 Malignant neoplasm of pancreas, unspecified; E87.1 Hypo-osmolality and hyponatremia; D62 Acute posthemorrhagic anemia; I95.9 Hypotension, unspecified; R65.20 Severe sepsis without septic shock; E80.6 Other disorders of bilirubin metabolism; K21.9 Gastro-esophageal reflux disease without esophagitis; Z28.21 Immunization not carried out because of patient refusal; Z87.442 Personal history of urinary calculi; Z85.3 Personal history of malignant neoplasm of breast; Z98.51 Tubal ligation status; Z90.89 Acquired absence of other organs; Z98.890 Other specified postprocedural states; Z98.891 History of uterine scar from previous surgery; Z88.0 Allergy status to penicillin; Z88.1 Allergy status to other antibiotic agents; Z88.8 Allergy status to other drugs, medicaments and biological substances; Z91.041 Radiographic dye allergy status; Z79.2 Long term (current) use of antibiotics; Z79.899 Other long term (current) drug therapy
CPT/HCPCS: 36415; 36430; 71045; 71260; 74160; 74181; 80053; 82272; 83605; 83690; 83735; 85014; 85018; 85025; 85610; 86850; 86900; 86901; 86920; 86923; 87040; 93005; 93010; 96365-59; 96366-59; 96367-59; 96375-59; 99285-25; A9270; C9113; J0692; J0744; J1200; J2405; J2930; J3010; J7030; J7040; P9016; Q9967

== ENCOUNTER → 2022-12-03 | Outpatient (CLI) | payer OTHER ==
[2022-12-03 13:28] LABS: Hematocrit 25.6 % (33.0-51.0); Hemoglobin 7.9 g/dL (11.5-16.0); Mean Corpuscular HGB 19.9 pg (26.0-34.0); Mean Corpuscular HGB Conc 30.9 g/dL (31.5-36.5); Mean Corpuscular Volume 65 fL (80-100); Mean Platelet Volume 9.9 fL (9.1-12.4); Platelet Count 305 K/mm3 (150-400); RDW Coefficient Variation 23.6 % (11.7-14.2); RDW Standard Deviation 53.2 fL (35.1-46.3); Red Blood Cell Count 3.97 M/mm3 (3.80-5.20); White Blood Cell Count 9.76 K/mm3 (4.00-11.30)
[2022-12-03 13:47] LABS: Albumin, Blood 2.5 g/dL (3.4-5.0); Albumin/Globulin Ratio 0.7 (0.8-1.8); Bilirubin, Total 2.9 mg/dL (0.1-1.0); Bun/Creatinine Ratio 27.7 (12.0-20.0); Calcium, Blood 8.3 mg/dL (8.5-10.1); Creatinine, Blood 0.43 mg/dL (0.40-1.00); Globulin, Blood 3.6 g/dL (2.2-4.0); Potassium, Blood 4.1 mmol/L (3.5-5.5); Total Protein, Blood 6.1 g/dL (6.4-8.2)
== END ==
LOC: LAB SHORT 10:00
PROVIDERS: Radiology Diagnostic Radiology
DX: K83.1 Obstruction of bile duct (principal); K66.8 Other specified disorders of peritoneum
CPT/HCPCS: 80053; 85027

== ENCOUNTER 2023-02-18 02:35 | Day surgery (SDC) | payer OTHER ==
[2023-02-18] MEDS ORDERED: MORP30ER PO (09:39)
[2023-02-18] MEDS ORDERED: GABA100 PO (09:41)
== END 2023-02-18 11:50 | disposition home or self-care (01) ==
LOC: ATC 02:35
DX: C25.4 Malignant neoplasm of endocrine pancreas (principal); D63.0 Anemia in neoplastic disease
CPT/HCPCS: 36415; 86850; 86900; 86901; 86923; J7050; P9016